=== PATIENT | female | born 1985 | race Hispanic/Latino ===

== ENCOUNTER 2024-03-11 14:31 | Emergency (ER) | payer OTHER, SELFPAY ==
[2024-03-11 14:35] VITALS: BP 142/88
[2024-03-11 14:55] LABS: % Basophils 0.6 % (0-2); % Eosinophils 1.4 % (0-6); % Immature Granulocytes 0.3 % (0-0.5); % Lymphocytes 28.6 % (20.5-51.1); % Monocytes 5.4 % (1.7-9.3); % Neutrophils 63.7 % (42.2-75.2); Absolute Basophils 0.1 10^3/uL (0-0.2); Absolute Eosinophils 0.1 10^3/uL (0-0.7); Absolute Lymphocytes 2.3 10^3/uL (1.2-3.4); Absolute Monocytes 0.4 10^3/uL (0.1-0.6); Absolute Neutrophils 5.1 10^3/uL (1.4-6.5); Hematocrit 40.3 % (37.0-47.0); Hemoglobin 13.7 g/dL (12.0-16.0); Mean Corpuscular Hgb 29.7 pg (27.0-31.0); Mean Corpuscular Volume 87.4 fL (81.0-99.0); Mean Platelet Volume 8.9 fL (7.4-10.4); Nucleated Red Blood Cells % 0 %; Platelet Count 242 10^3/uL (130-400); Red Blood Cell Count 4.61 10^6/uL (4.20-5.40); Red Cell Dist. Width 12.6 % (11.5-14.5); White Blood Cell Count 7.9 10^3/uL (4.8-10.8)
[2024-03-11 15:11] LABS: ALT (SGPT) 19 U/L (0-35); AST (SGOT) 23 U/L (14-36); Albumin 4.6 g/dl (3.5-5.0); Alkaline Phosphatase 58 U/L (38-126); Blood Urea Nitrogen 12 mg/dl (7-17); Calcium 9.5 mg/dl (8.4-10.2); Carbon Dioxide 25 mmol/L (22-30); Chloride 104 mmol/L (98-107); Glucose 90 mg/dl (70-99); Potassium 3.9 mmol/L (3.5-5.1); Sodium 133 mmol/L (135-145); Total Bilirubin 0.8 mg/dl (0.2-1.3); Total Protein 7.2 g/dl (6.3-8.2); eGFR > 60.00
[2024-03-11 15:27] LABS: Beta HCG Quantitative 148.08 mIU/ml
[2024-03-11 18:06] LABS: Urine Albumin Negative (Neg - Trace); Urine Bilirubin Negative (Negative); Urine Character Clear (Clear); Urine Color Yellow; Urine Glucose Negative (Negative); Urine Ketone 1+ (Negative); Urine Leukocyte 2+ (Negative); Urine Nitrite Negative (Negative); Urine Occult Blood 2+ (Negative); Urine Specific Gravity 1.025 (<1.030); Urine Urobilinogen Negative (Neg - 1+)
--- NOTE | 2024-03-11 18:07 | ED.GENMED ---
History of Present Illness
General
Chief Complaint: Flank Pain
Source: patient
Exam Limitations: none
Time Seen by Provider: 03/11/24 17:53
Travel History
Have you had any contact with someone who has COVID-19?: No
Do you have any symptoms of coronavirus? Fever > 100 degrees, chills, cough, shortness of breath, sore throat, loss of taste or smell, muscle aches, or headache?: No
History of Present Illness
History of Present Illness:
This is a 38 year old female that comes in with c/o left flank pain. States that she started with left flank pain this morning and she thought it was musculoskeletal. Then the pain continued to get worse. States that she has also had diarrhea for
the past 3-5 days but has not had a BM today. States that she went to and they said that her urine was negative and sent her to the ER to r/o ectopic as her HCG came back positive. States that she has a low grade fever with chills.
Denies any chest pain, SOB, nausea, vomiting, headache, dizziness, urinary burning.
Past History
Past History
ED Past Medical History: Other (Elevated Triglycerides, Anemia, )
ED Past Surgical History: Other (Bariatric surgery)
Social History
Tobacco: Former smoker
Alcohol: Occasional
Personal:
Living: with family
Review of Systems
Review of Systems
All Other Systems: ROS reviewed and negative except as documented in HPI and ROS
Constitutional: Reports fever and chills
EENT: Reports no symptoms
Respiratory: Reports no symptoms; Denies cough or trouble breathing
Cardiac: Reports no symptoms; Denies chest pain
ABD/GI: Reports abdominal pain and diarrhea; Denies nausea or vomiting
: Reports flank pain (Left sided)
Musculoskeletal: Reports no symptoms
Skin: Reports no symptoms
Neurological: Reports no symptoms; Denies dizzy or headache
Psychiatric: Reports no symptoms
Phy Exam
General Physical Exam
General Presentation: well appearing and no apparent distress
General age: appears stated age
General Skin: warm and dry
General Habitus: normal
General Mental: alert
General Hydration: appears well hydrated
ENT Exam
ENT Exam: TM's normal, pharynx normal and neck supple
Eye Exam
Eye Exam: EOMI
Cardiovascular Exam
Cardiovascular Exam: regular rate/rhythm, no edema, no murmur and normal peripheral pulses
Pulmonary Exam
Pulmonary Exam: lungs clear, no respiratory distress, no rales, chest non tender, no crackles, no rhonchi, no wheezing and no cough
Gastrointestinal Exam
Gastrointestinal Exam: normal bowel sounds, soft, no organomegaly, no pulsatile mass, non distended, no cva tenderness and tender (Left sided abd tenderness with palpation)
Musculoskeletal Exam
Musculoskeletal Exam: full ROM and no edema
Skin Exam
Skin Exam: normal color, warm/dry, no rash and no petechia
Psychiatric Exam
Psychiatric Exam: normal mood/affect
Course
Orders/Labs/Results
Orders:
Orders
03/11/24 14:44
Complete Blood Count/With Diff Urgent
Comprehensive Metabolic Panel Urgent
HCG, Beta Quantitative [Beta HCG Quantitative] Urgent
Is this a screen?: No
03/11/24 17:36
Urinalysis Reflex To Culture Urgent
Date Specimen was Collected: 03/11/24
Time Specimen was Collected: 17:28
Urine Microscopic Reflex Cult Urgent
Urine Culture Urgent
GULSHAN Source: U
Specimen Description:
Date Specimen was Collected: 03/11/24
Time Specimen was Collected: 17:28
03/11/24 18:05
US 1st Trimester Urgent
Comment:
Reason For Exam: Left lower abd pain
US Renal Only W/O Bladder Urgent
Comment:
Reason For Exam: left flank pain
03/11/24 18:06
0.9% Sodium Chloride 1000 ml [Nss] 1,000 ml IV BOLUS
03/11/24 20:05
CefTRIAXone [Rocephin] 1,000 mg IV NOW STA
Abnormal Lab Results
03/11/24 03/11/24
14:44 17:36
Sodium 133 L mmol/L
(135-145)
Creatinine 0.4 L mg/dL
(0.6-1.0)
Urine Ketones 1+ A
(Negative)
Ur Occult Blood Reflex 2+ A
(Negative)
Leukocyte Esterase Rfl 2+ A
(Negative)
Urine RBC 7-10 A /HPF
(0-2)
Urine WBC (Reflex) 26-30 A /HPF
(0-5)
Urine Bacteria (Reflex) Few A
(Negative)
03/11/24 14:44
03/11/24 14:44
Sodium slightly low, Urine positive for infection. HCG 148.08
Vital Signs
Initial and Last Documented VS:
Initial Vital Signs
Temp Pulse Resp BP Pulse Ox
99.1 F 66 18 142/88 100
03/11/24 14:35 03/11/24 14:35 03/11/24 14:35 03/11/24 14:35 03/11/24 14:35
Last Documented Vital Signs
Temp Pulse Resp BP Pulse Ox
99.1 F 66 18 113/77 99
03/11/24 14:35 03/11/24 14:35 03/11/24 14:35 03/11/24 19:00 03/11/24 19:15
MDM/Problems Addressed
Differential Diagnosis Includes:
Renal calculus, Colitis, Pyelonephritis. Ectopic .
MDM/Problems Addressed:
This is a 38 year old female that comes in with c/o left abd and flank pain. States that she started with left back/flank pain this morning and she thought it was musculoskeletal. Then the pain got worse. Patient went to and found out she was
. Patient was sent to the ER.
Will get labs, Urine, US of renals and Pelvic US.
Back into see patient and . Explained that the Renal ultrasound was negative and the Pelvic Ultrasound was negative for an intrauterine or any appearance of Ectopic but this may be due to the fact that it is to early. At this time
patient will be treated for a UTI and she is to follow up with the [facility] in 2 days for repeat labs. Patient to return here with fever, increased pain or any other concerns.
Chronic conditions affecting care:
NA
Acute Exacerbation and/or Progression of Chronic Illness:
NA
*Radiology
Radiology exam reviewed: radiology read reviewed (Renal Ultrasound-Normal sonographic appearance of both kidneys. US pelvis- No evidence for intrauterine . Within both ovaries there appears to be a small ovoid complex cystic structures,
appearance most suggestive of corpus luteum bilaterally. No finding highly suggestive of ectopic ), all reviewed NAD by ED Provider (Pelvic Us Cont- Of extopic . However, given the low quantitative beta HCG value, main differential
considerations of Spontaneous and ectopic . Early intrauterine is still possible but less likely given the quantitative beta HCG value. Consider continued follow) and other (Pelvic US cont- With follow up US in 10-14
days. )
*Pulse Oximetry
Patient hypoxic: no
*EKG
Interpreted by ED Provider?: NA
Rate: EKG- N/A
*Program Services Assistant Interpretation
Rate: Program Services Assistant- N/A
*Critical Care Note
Total Time (30-74mins, 75-104mins- exclusive of procedures): Not Applicable
ED Attending Note
-
Portions of this chart may have been created with voice recognition software.� Occasional wrong word or��sound alike� substitutions may have occurred due to the inherent limitations of voice recognition software.
Discharge Plan
Departure
Patient Disposition: Home (Routine Discharge)
Date of Disposition: 03/11/24
Time of Disposition: 20:50
Patient with high blood pressure during this ER visit?: No
Condition: Good
Covid-19: Not Applicable
Discharge Problem:
Urinary tract infection
Instructions: Stomach Pain in Early , Urinary Tract Infection, Adult ED
Prescriptions:
New
cefdinir 300 mg capsule
300 mg PO BID Qty: 14 0RF
Referrals:
Crista Padgett MD [Family Provider] -
Activity Restrictions/Additional Instructions:
As discussed. your blood work is normal. Your HCG level is slightly elevated. You will need to see your [facility] in 2 days for repeat labs. Your Renal ultrasound is normal and your Pelvic Ultrasound is negative for any intrauterine and at
this time there is no Ectopic noted. However, this is very early. You to have a urinary tract infection and have been given IV antibiotics here and a prescription has been sent to your Pharmacy to start tomorrow. Please increase your water intake
to 8-8oz glasses daily. IF YOU HAVE INCREASED OR CHANGING PAIN, OR YOU HAVE ANY OTHER CONCERNS PLEASE RETURN TO THE EMERGENCY ROOM.
Interventions
Interventions:
*Risk Screen - Suicide Last Done: 03/11/24 17:30
*General Assessment Last Done: 03/11/24 17:30
*Neglect/Abuse Screening Last Done: 03/11/24 17:30
ED- Fall Risk Assessment Last Done: 03/11/24 17:30
*ED COVID-19 Vaccine History Last Done: 03/11/24 14:35
LA-Xizmox-Ruficivxsp Assessment Last Done: 03/11/24 17:30
ED-Female Genitourinary Assessment Last Done: 03/11/24 17:30
Discharge Date and Time
Print Language: PANAMANIAN
[2024-03-11 18:16] LABS: Urine Bacteria Few (Negative); Urine White Cell 26-30 /HPF (0-5)
[2024-03-11 18:22] VITALS: BP 107/71
[2024-03-11] MEDS: NSS 1000 IV (18:25)
[2024-03-11 19:00] VITALS: BP 113/77
[2024-03-11] MEDS: ROCEPHIN 1000 MG IV (20:32)
== END 2024-03-11 21:09 | disposition home or self-care (01) ==
LOC: EMR 14:31
PROVIDERS: Emergency Medicine; EMERGENCY PHYSICIAN Emergency Medicine; FAMILY PHYSICIAN Family Medicine
DX: O23.41 Unspecified infection of urinary tract in pregnancy, first trimester (principal); Z3A.01 Less than 8 weeks gestation of pregnancy; Z87.891 Personal history of nicotine dependence
CPT/HCPCS: 99284; 96374; 96361; 76775; 76801; 80053; 81003; 81015; 84702; 85025; 87086

== ENCOUNTER → 2024-05-12 14:42 | Outpatient (REF) | payer OTHER, SELFPAY | LOC: PNTC 14:42 | PROVIDERS: ATTENDING PHYSICIAN Nurse Practitioner Women's Health | DX: Z36.0 Encounter for antenatal screening for chromosomal anomalies (principal); O09.529 Supervision of elderly multigravida, unspecified trimester; O31.10X0 Continuing pregnancy after spontaneous abortion of one fetus or more, unspecified trimester, not applicable or unspecified; P02.3 Newborn affected by placental transfusion syndromes; Z87.59 Personal history of other complications of pregnancy, childbirth and the puerperium | CPT/HCPCS: 36415; 76801; 76813 ==

== ENCOUNTER → 2024-07-01 15:55 | Outpatient (REF) | payer OTHER, SELFPAY | LOC: PNTC 15:55 | PROVIDERS: ATTENDING PHYSICIAN Nurse Practitioner Women's Health | DX: O99.210 Obesity complicating pregnancy, unspecified trimester (principal); O99.519 Diseases of the respiratory system complicating pregnancy, unspecified trimester; O31.20X0 Continuing pregnancy after intrauterine death of one fetus or more, unspecified trimester, not applicable or unspecified | CPT/HCPCS: 76811 ==

== ENCOUNTER → 2024-07-14 17:12 | Outpatient (REF) | payer OTHER, SELFPAY | LOC: PNTC 17:12 | PROVIDERS: ATTENDING PHYSICIAN Nurse Practitioner Women's Health | DX: O99.210 Obesity complicating pregnancy, unspecified trimester (principal); O99.519 Diseases of the respiratory system complicating pregnancy, unspecified trimester; O31.20X0 Continuing pregnancy after intrauterine death of one fetus or more, unspecified trimester, not applicable or unspecified | CPT/HCPCS: 76815 ==

== ENCOUNTER → 2024-10-18 16:00 | Outpatient (REF) | payer OTHER, SELFPAY | LOC: PNTC 16:00 | PROVIDERS: ATTENDING PHYSICIAN Advanced Practice Midwife | DX: O09.529 Supervision of elderly multigravida, unspecified trimester (principal) | CPT/HCPCS: 76816 ==